=== PATIENT | female | born 1970 | race Caucasian/White ===

== ENCOUNTER → 2016-03-04 | Outpatient (CLI) | payer OTHER ==
--- NOTE | 2016-03-04 08:37 | RAD ---
EXAM DESCRIPTION: Cervical spine series. CLINICAL HISTORY: Neck pain. COMPARISON: None. TECHNIQUE: Spot views of the cervical spine were obtained. FINDINGS: Patient is status post interbody fusion of C3-4. Nearly complete bridging osteophytes seen at C2-3 and C4-5. Osteophytes noted at C5-6. Alignment is unremarkable. There is neural foraminal narrowing bilaterally at C4-5. The dens is unremarkable. IMPRESSION: Multilevel degenerative change at the levels above and below the fusion. Electronically signed by: Tyrone Luevano MD 03/04/2016 08:36
== END ==
LOC: RAD 07:51
PROVIDERS: ATTEND Anesthesiology Pain Medicine
DX: M50.122 Cervical disc disorder at C5-C6 level with radiculopathy (principal); Z98.1 Arthrodesis status

== ENCOUNTER → 2016-03-22 | Outpatient (CLI) | payer OTHER ==
--- NOTE | 2016-03-22 10:18 | MRI ---
EXAM DESCRIPTION: MR LUMBAR SPINE WITHOUT IV CONTRAST CLINICAL HISTORY: RADICULOPATHY COMPARISON: None. TECHNIQUE: Multiplanar MRI of the lumbar spine was performed without contrast. GENERAL Lumbar vertebral bodies show normal height without compression deformity. Normal alignment of the lumbar spine is seen. Conus medullaris terminates at T12 and is unremarkable. The visualized intra-abdominal and retroperitoneal structures are unremarkable. There is normal hydration of the intervertebral disc spaces without significant disc space narrowing. No significant annular tear, herniated disc, or disc bulging. No significant spinal canal stenosis, foraminal encroachment, or nerve root impingement is seen. No significant facet arthropathy or pars defect is identified. Surrounding soft tissues are unremarkable. L1-2 No significant findings. L2-3 No significant findings. L3-4 No significant findings. L4-5 No significant findings. L5-S1 No significant findings. IMPRESSION: Unremarkable noncontrast MRI of the lumbar spine. Electronically signed by: Varghese Rojas MD 03/22/2016 10:16
--- NOTE | 2016-03-22 10:35 | MRI ---
EXAM DESCRIPTION: MR CERVICAL SPINE WITHOUT THEN WITH IV CONTRAST CLINICAL HISTORY: RADICULOPATHY, CHRONIC PAIN COMPARISON: None. TECHNIQUE: Multiplanar MRI of the cervical spine was performed with and without contrast. FINDINGS: There is metallic susceptibility artifact from anterior interbody fixation hardware at C3-4. Vertebral bodies show normal height without compression deformity. Normal alignment of the cervical spine is seen. Osseous structures show no marrow replacing process. There are no abnormal areas of enhancement. No abnormal enhancing scar tissue is seen. Craniocervical junction is maintained. A normal basilar flow void is seen. The spinal cord shows normal MRI signal and contour. Right lobe thyroid is mildly enlarged compared to the left. There is an 8 mm transverse right mid lobe thyroid nodule mildly increased T2 signal without enhancement. C1-2 AND CRANIOCERVICAL JUNCTION Unremarkable. C2-3 No significant findings. C3-4 Postsurgical changes as described above. No spinal canal stenosis or foraminal encroachment. No abnormal areas of enhancement are seen. C4-5 Mild disc desiccation without loss of disc space height. No spinal canal stenosis or significant foraminal encroachment. C5-6 Mild disc desiccation without loss of disc space height. No spinal canal stenosis or foraminal encroachment is seen. C6-7 No significant findings. C7-T1 No significant findings. IMPRESSION: Postsurgical changes from anterior interbody hardware fixation at C3-4. No complicating features are identified. Mild disc degenerative changes from C4 through C6 are seen without significant spinal canal stenosis or foraminal encroachment. Incidentally noted 8 mm right lobe thyroid nodule. No further imaging followup is recommended. Recommendations for f/u of Incidental Thyroid Nodules (ITN) found on CT, MRI, NM and Extrathyroidal US based on the ACR white paper and [place] 3-tiered system for managing ITNs: 1. Further evaluation by thyroid US recommended for: ? Solitary ITN with high risk imaging features (locally invasive nodule or suspicious lymph nodes) ? Solitary ITN of any size in pediatric patients ?18 years of age ? Solitary ITN ? 1 cm in axial plane in patients between 18 and 35 years of age ? Solitary ITN ? 1.5 cm in axial plane in patients? 35 years of age ? Heterogeneous enlarged thyroid gland ? ITN avid on FDG-PET or other nuclear medicine (MIBI and octreotide) scans. FNA biopsy is also recommended for PET avidnodules. 2. No f/u is necessary for ITNs not meeting the above criteria. 3. For multiple thyroid nodules, the above recommendations for solitary ITN are to be applied to the largest nodule. 4. No US or f/u recommended for ITNs without high risk features in patients with limited life expectancy or significant co-morbidities, unless clinically warranted. 5. These recommendations do not apply to patients with increased risk for thyroid canceror to patients with symptomatic thyroid disease. Electronically signed by: Varghese Rojas MD 03/22/2016 10:34
== END | disposition home or self-care (01) ==
LOC: MRI 08:02
PROVIDERS: ATTEND Anesthesiology Pain Medicine
DX: G89.29 Other chronic pain (principal); M47.892 Other spondylosis, cervical region

== ENCOUNTER → 2016-04-28 | Outpatient (CLI) | payer OTHER ==
--- NOTE | 2016-04-28 10:43 | US ---
Study: Thyroid Gland Ultrasound. Indication: NODULE,RT LOBE Technique: Multiplanar grayscale sonographic images of the thyroid gland obtained. Comparison: None Findings: Right lobe measures 4.9 x 1.6 x 1.9 cm. Left lobe measures 4.0 x 2.0 by 1.6 cm. Isthmus measures 0.7 cm. 1.3 cm isoechoic solid nodule superior right lobe. 1.1 cm isoechoic solid nodule mid right lobe. 1.0 cm hypoechoic solid nodule lower right lobe posteriorly. 0.4 cm complex cystic nodule inferior left lobe. 1.4 cm hyperechoic solid nodule lower left lobe. Impression: Multinodular goiter as above. At this time, these nodules do not meet criteria requiring fine-needle aspiration biopsy. However, follow up sonogram in one year recommended. Electronically signed by: Gabino Robles MD 04/28/2016 10:43 AM CDT
== END | disposition home or self-care (01) ==
LOC: US 07:54
PROVIDERS: ATTEND Family Medicine
DX: E04.2 Nontoxic multinodular goiter (principal)

== ENCOUNTER 2016-06-06 12:14 | Emergency (ER) | payer OTHER ==
[2016-06-06 12:35] VITALS: TEMP 99.6
--- NOTE | 2016-06-06 13:20 | RAD ---
EXAM DESCRIPTION: Abdomen Flat Upright CLINICAL HISTORY: hematuria, ankylosing spondylitis COMPARISON: None FINDINGS: Supine and upright images of the abdomen were submitted. There are surgical clips within the right side of the abdomen. Calcification within the pelvis may represent a phlebolith. There is no free air in the abdomen. There is no evidence of bowel obstruction. IMPRESSION: No acute abnormalities. Electronically signed by: Beto Drummond MD 06/06/2016 1:19 PM CDT
[2016-06-06] MEDS ORDERED: SODIUM CHLORIDE 0.9% 1000ML 1,000 ML IVS ONE (13:29)
[2016-06-06] MEDS ORDERED: INSULIN, REG.(HUMAN) 100 U/ML VIAL SUBCU ONE (13:29)
[2016-06-06 14:08] VITALS: O2SAT 95
--- NOTE | 2016-06-06 14:32 | ED.PDOC ---
History of Present Illness - General Chief Complaint: Problem Stated Complaint: thigh cramping, hematuria, oral ulcerations Time Seen by Provider: 06/06/16 12:17 Source: patient Exam Limitations: no limitations - History of Present Illness Initial Comments: the patient is a 46-year-old female presenting to the emergency room secondary to symptoms of mild nausea with abdominal cramping along with cramping in her legs for the last week coming worse over the last 24 hours. Additionally she did have one day where she had a small amount of hematuria. No chest pain and no shortness of breath. She has been feeling more fatigued. No syncope or near syncope. Timing/Duration: 1 week Severity: mild Improving Factors: nothing Worsening Factors: nothing Associated Symptoms: malaise, nausea/vomiting, weakness Allergies/Adverse Reactions: Allergies Ciprofloxacin [From Cipro] Allergy (Verified 03/22/12 08:43) Erythromycin Allergy (Verified 03/22/12 08:43) Penicillins Allergy (Verified 03/22/12 08:43) Home Medications: Ambulatory Orders Lisinopril & Hydrochlorothiazi [Lisinopril/Hctz 20-25 mg] 1 tab PO BID 06/06/16 Review of Systems - Review of Systems Constitutional: States: malaise EENTM: States: no symptoms reported Respiratory: States: no symptoms reported Cardiology: States: no symptoms reported Gastrointestinal/Abdominal: States: see HPI Genitourinary: States: see HPI Musculoskeletal: States: muscle pain Skin: States: no symptoms reported Neurological: States: no symptoms reported Endocrine: States: increased thirst, increased urine Hematologic/Lymphatic: States: no symptoms reported All other Systems: No Change from Baseline Past Medical History (General) - Patient Medical History Hx Asthma: No Hx of COPD: No Hx Cardiac Disorders: No Hx Congestive Heart Failure: No Hx Hypertension: Yes Hx Thyroid Disease: No Hx Diabetes: Yes Hx Gastroesophageal Reflux: No Surgical History: appendectomy, other - Female History Patient is a Female of Child Bearing Age (10 -59 yrs old): Yes Hx Last Menstrual Period: 05/21/16 Patient : No Family Medical History - Family History Mother Family History: Unknown Physical Exam - Physical Exam General Appearance: Alert, Comfortable, No apparent distress Eye Exam: bilateral normal Ears, Nose, Throat: normal ENT inspection, normal pharynx, other - the patient does have changes consistent with hirsutism Neck: non-tender, full range of motion, supple, normal inspection Respiratory: chest non-tender, lungs clear, normal breath sounds, no respiratory distress, no accessory muscle use Cardiovascular/Chest: normal peripheral pulses, regular rate, rhythm, no edema Peripheral Pulses: radial,right: 2+, radial,left: 2+, dorsalis pedis,right: 2+, dorsalis pedis,left: 2+ Gastrointestinal/Abdominal: non tender, soft, other - the patient is obese. No rebound or peritoneal signs. Rectal Exam: deferred Back Exam: normal inspection, no CVA tenderness, no vertebral tenderness Extremity: normal range of motion, no pedal edema, no calf tenderness, normal capillary refill, other - the patient does have some soreness to palpation around the thighs. There is no bruising. There is no palpable mass. No palpable cords. Neurologic: alert, normal mood/affect, oriented x 3 Skin Exam: normal color Comments: Vital Signs - 24 hr 06/06/16 06/06/16 12:27 14:00 Temperature 99.6 F Pulse Rate [ 89 75 LEFT BRACHIAL] Respiratory 16 20 Rate Blood Pressure 145/85 125/75 [left brachial] O2 Sat by Pulse 96 95 Oximetry Progress - Progress Progress: 06/06/16 14:33 the patient is a 46-year-old female presenting to the emergency room secondary to one episode of hematuria a few days ago along with a progressive weeks' worth of symptoms of myalgias and abdominal cramping. Her urine dip is void of blood at this time. It is possible she may have passed a small kidney stone earlier in the week. She should have a repeat urinalysis performed in 1- 2 weeks. The patient however does have uncontrolled diabetes and is likely having systemic symptoms from the hyperglycemia and mild dehydration. She received a liter of IV fluids here today and 10 units of regular insulin. She needs to follow her blood sugars at least twice daily, before supper and before breakfast, and give herself sliding scale insulin. She needs to record these numbers and taken to her primary care doctor who can further adjust her Levemir as needed for better diabetes control. No evidence of DKA at this time. She does need follow-up with her primary care doctor later this week. ER warnings were given. - Results/Orders Results/Orders: Laboratory Tests 06/06/16 06/06/16 06/06/16 12:37 12:52 12:52 WBC 6.5 RBC 3.95 L Hgb 12.4 Hct 36.3 MCV 91.9 MCH 31.3 H MCHC 34.2 RDW 13.7 Plt Count 222 MPV 9.5 Absolute Neuts (auto) 3.30 Absolute Lymphs (auto) 2.70 Absolute Monos (auto) 0.40 Absolute Eos (auto) 0.10 Absolute Basos (auto) 0.00 Neutrophils % 50.4 Lymphocytes % 41.7 Monocytes % 6.3 Eosinophils % 0.9 L Basophils % 0.7 PT INR PTT (SP) D-Dimer, Quantitative Sodium 134 L Potassium 4.1 Chloride 100 L Carbon Dioxide 27 Anion Gap 11.1 L BUN 10 Creatinine 0.73 BUN/Creatinine Ratio 13.7 Random Glucose 362 H Serum Osmolality 281.9 Calcium 9.1 Magnesium 1.9 Total Bilirubin 0.5 AST 18 ALT 43 Alkaline Phosphatase 42 Creatine Kinase 40 CK-MB (CK-2) 0.6 CK-MB (CK-2) % Not Reportable Troponin I < 0.02 Serum Total Protein 7.5 Albumin 4.0 Globulin 3.5 Albumin/Globulin Ratio 1.1 TSH 1.58 Urine Color Yellow Urine Appearance Clear Urine pH 7.0 Ur Specific [place] 1.015 Urine Protein Negative Urine Glucose (UA) 500 H Urine Ketones Trace Urine Blood Trace-intact H Urine Nitrite Negative Urine Bilirubin Negative Urine Urobilinogen >= 8.0 H Ur Leukocyte Esterase Negative Urine RBC 0-1 Urine WBC 0 Ur Epithelial Cells 0-1 Urine Bacteria 0 Urine HCG, Qual 06/06/16 06/06/16 12:52 12:52 WBC RBC Hgb Hct MCV MCH MCHC RDW Plt Count MPV Absolute Neuts (auto) Absolute Lymphs (auto) Absolute Monos (auto) Absolute Eos (auto) Absolute Basos (auto) Neutrophils % Lymphocytes % Monocytes % Eosinophils % Basophils % PT 11.6 INR 1.030 PTT (SP) 25.4 D-Dimer, Quantitative < 230 Sodium Potassium Chloride Carbon Dioxide Anion Gap BUN Creatinine BUN/Creatinine Ratio Random Glucose Serum Osmolality Calcium Magnesium Total Bilirubin AST ALT Alkaline Phosphatase Creatine Kinase CK-MB (CK-2) CK-MB (CK-2) % Troponin I Serum Total Protein Albumin Globulin Albumin/Globulin Ratio TSH Urine Color Urine Appearance Urine pH Ur Specific [place] Urine Protein Urine Glucose (UA) Urine Ketones Urine Blood Urine Nitrite Urine Bilirubin Urine Urobilinogen Ur Leukocyte Esterase Urine RBC Urine WBC Ur Epithelial Cells Urine Bacteria Urine HCG, Qual Negative abdominal x-rays consistent with constipation. No evidence of perforation or obstruction. Departure - Departure Clinical Impression: Uncontrolled diabetes mellitus, Hematuria Disposition: Discharge to Home or Self Care Condition: Fair Departure Forms: ED Discharge - Pt. Copy, Patient Portal Self Enrollment Instructions: DI for Hyperglycemia -- Adult, DI for Hematuria Diet: diabetic diet Activity: increase activity as tolerated Referrals: [facility] OLSEN [Primary Care Provider] - 1-2 Weeks Home Medications: Ambulatory Orders Lisinopril & Hydrochlorothiazi [Lisinopril/Hctz 20-25 mg] 1 tab PO BID 06/06/16 Additional Instructions: the patient is a 46-year-old female presenting to the emergency room secondary to one episode of hematuria a few days ago along with a progressive weeks' worth of symptoms of myalgias and abdominal cramping. Her urine dip is void of blood at this time. It is possible she may have passed a small kidney stone earlier in the week. She should have a repeat urinalysis performed in 1- 2 weeks. The patient however does have uncontrolled diabetes and is likely having systemic symptoms from the hyperglycemia and mild dehydration. She received a liter of IV fluids here today and 10 units of regular insulin. She needs to follow her blood sugars at least twice daily, before supper and before breakfast, and give herself sliding scale insulin. She needs to record these numbers and taken to her primary care doctor who can further adjust her Levemir as needed for better diabetes control. No evidence of DKA at this time. She does need follow-up with her primary care doctor later this week. ER warnings were given.
[2016-06-06 15:35] VITALS: BP 135/71
== END 2016-06-06 15:05 | disposition home or self-care (01) ==
LOC: ER 12:14
DX: E11.65 Type 2 diabetes mellitus with hyperglycemia (principal); R31.9 Hematuria, unspecified; I10 Essential (primary) hypertension; E86.0 Dehydration; Z79.899 Other long term (current) drug therapy; Z88.0 Allergy status to penicillin; Z88.3 Allergy status to other anti-infective agents
CPT/HCPCS: 36415; 74010; 80053; 81001; 81025; 82550; 82553; 83735; 84443; 84484; 85025; 85379; 85610; 85730; J7030

== ENCOUNTER 2017-09-01 21:56 | Emergency (ER) | payer BC, OTHER ==
--- NOTE | 2017-09-01 22:53 | ED.PDOC ---
History of Present Illness - General Chief Complaint: Behavioral / Psych Stated Complaint: fast breathing, anxious Time Seen by Provider: 09/01/17 22:52 Source: patient Exam Limitations: no limitations - History of Present Illness Initial Comments: Jeannie Ramos 47 y/o female stated that she had nausea/vomiting 28 August 2017 and went to [facility] ER she was given ivf hydration and Zofran was mixed with her iv bag for her N/V and had feeling of throat has been closing and talked to the ER-MD andbut since she was given the stated that it is temporary feeling that it will go away but stated had persisted since then.Patient had been unable to sleep for 4 days feels SOB.Denies chest pain,palpitations. Severity: moderate Improving Factors: nothing Worsening Factors: nothing Associated Symptoms: other - see hpi Allergies/Adverse Reactions: Allergies Ciprofloxacin [From Cipro] Allergy (Verified 09/02/17 00:34) Erythromycin Allergy (Verified 09/02/17 00:34) Penicillins Allergy (Verified 09/02/17 00:34) Home Medications: Ambulatory Orders Lisinopril & Hydrochlorothiazi [Lisinopril/Hctz 20-25 mg] 1 tab PO BID 06/06/16 Adalimumab [Humira Pen] 40 units SUBCU WKLY 09/02/17 DULoxetine HCL [Cymbalta] 30 mg PO DAILY 09/02/17 Folic Acid [Folic Acid] 09/02/17 Gabapentin [Gabapentin] 09/02/17 Levemir Pen 09/02/17 Liraglutide [Victoza] 09/02/17 Lisinopril & Hydrochlorothiazi [Lisinopril/Hctz 20-12.5 mg] 1 tab PO 09/02/17 Metformin HCl [Metformin HCl] 09/02/17 Methadone HCl [Methadone HCl] 09/02/17 cloNAZepam [Klonopin] 09/02/17 Review of Systems - Review of Systems Constitutional: States: no symptoms reported EENTM: States: no symptoms reported Respiratory: States: see HPI Cardiology: States: no symptoms reported Gastrointestinal/Abdominal: States: no symptoms reported Musculoskeletal: States: back pain - chronic Skin: States: no symptoms reported Neurological: States: no symptoms reported Past Medical History (General) - Patient Medical History Hx Asthma: No Hx of COPD: No Hx Cardiac Disorders: No Hx Congestive Heart Failure: No Hx Hypertension: Yes Hx Thyroid Disease: No Hx Diabetes: Yes Hx Gastroesophageal Reflux: No Hx Other PMH: Yes - ankylosing spondylitis Surgical History: appendectomy, other - neck fusion - Social History Hx Tobacco Use: No Hx Alcohol Use: No Hx Substance Use: No Hx Substance Use Treatment: No Hx Depression: No Hx Physical Abuse: No Hx Emotional Abuse: No - Activities of Daily Living Patient Lives Alone: No - Female History Patient is a Female of Child Bearing Age (10 -59 yrs old): Yes Hx Last Menstrual Period: 08/30/17 Patient : No Family Medical History - Family History Mother Family History: Unknown Hx Family Hypertension: Yes Hx Family;Other: thyroid disorder Physical Exam - Physical Exam General Appearance: Alert, Comfortable, No apparent distress Eye Exam: bilateral normal Ears, Nose, Throat: hearing grossly normal, normal ENT inspection Neck: non-tender, full range of motion, supple, normal inspection Respiratory: chest non-tender, lungs clear, normal breath sounds, no respiratory distress Cardiovascular/Chest: normal peripheral pulses, regular rate, rhythm, no murmur Peripheral Pulses: radial,right: 2+, radial,left: 2+ Gastrointestinal/Abdominal: normal bowel sounds, non tender, soft, no organomegaly Extremity: non-tender, no pedal edema, no calf tenderness Neurologic: no motor/sensory deficits, alert, oriented x 3 Skin Exam: normal color, warm/dry Lymphatic: no adenopathy Progress - Progress Progress: 09/02/17 00:02 Vital Signs - 8 hr 09/01/17 22:49 Temperature 97.9 F Pulse Rate [ 91 H left] Respiratory 18 Rate Blood Pressure 168/101 [left] O2 Sat by Pulse 100 Oximetry 09/02/17 00:08 Patient on Humira which can cause some elevation of lactic acid - Results/Orders Results/Orders: 09/01/17 22:53 Chest,1 View [RAD] Stat 09/01/17 23:00 EKG STAT Laboratory Results - last 24 hr 09/01/17 09/01/17 09/01/17 00:30 00:30 23:05 WBC 9.6 RBC 4.43 Hgb 14.2 Hct 40.2 MCV 90.8 MCH 32.1 H MCHC 35.4 RDW 13.5 Plt Count 314 MPV 9.8 Absolute Neuts (auto) 6.00 Absolute Lymphs (auto) 3.00 Absolute Monos (auto) 0.50 Absolute Eos (auto) 0.00 Absolute Basos (auto) 0.00 Neutrophils % 62.4 Lymphocytes % 31.7 Monocytes % 5.3 Eosinophils % 0.2 L Basophils % 0.4 PT 9.9 INR 0.99 PTT (SP) 21.7 L D-Dimer, Quantitative Sodium 134 L Potassium 3.6 Chloride 98 L Carbon Dioxide 23 Anion Gap 16.6 BUN 12 Creatinine 0.70 BUN/Creatinine Ratio 17.1 Random Glucose 219 H Serum Osmolality 274.7 L Lactic Acid Calcium 9.9 Magnesium 1.8 Total Bilirubin 0.5 Direct Bilirubin < 0.1 Indirect Bilirubin 0.4 AST 26 ALT 31 Alkaline Phosphatase 35 L Creatine Kinase 110 CK-MB (CK-2) 1.6 CK-MB (CK-2) % Not Reportable Troponin I < 0.02 B-Natriuretic Peptide < 5.0 Serum Total Protein 8.5 H Albumin 4.7 Lipase TSH 1.19 Urine Color Yellow Urine Appearance Clear Urine pH 6.5 Ur Specific [place] 1.010 Urine Protein Negative Urine Glucose (UA) Negative Urine Ketones Trace Urine Blood Small H Urine Nitrite Negative Urine Bilirubin Negative Urine Urobilinogen 0.2 Ur Leukocyte Esterase Negative Urine RBC 0 Urine WBC 0-1 Ur Epithelial Cells 1-3 Urine Bacteria Rare Urine Opiates Screen Negative Urine Barbiturates Negative Ur Phencyclidine Scrn Negative U Amphetamin/Meth Scrn Negative U Benzodiazepines Scrn Negative U Cocaine Metab Screen Negative U Cannabinoids Screen Negative Ethyl Alcohol 09/01/17 09/01/17 09/01/17 23:05 23:05 23:05 WBC RBC Hgb Hct MCV MCH MCHC RDW Plt Count MPV Absolute Neuts (auto) Absolute Lymphs (auto) Absolute Monos (auto) Absolute Eos (auto) Absolute Basos (auto) Neutrophils % Lymphocytes % Monocytes % Eosinophils % Basophils % PT INR PTT (SP) D-Dimer, Quantitative 0.33 Sodium Potassium Chloride Carbon Dioxide Anion Gap BUN Creatinine BUN/Creatinine Ratio Random Glucose Serum Osmolality Lactic Acid 3.2 H* Calcium Magnesium Total Bilirubin Direct Bilirubin Indirect Bilirubin AST ALT Alkaline Phosphatase Creatine Kinase CK-MB (CK-2) CK-MB (CK-2) % Troponin I B-Natriuretic Peptide Serum Total Protein Albumin Lipase 25 TSH Urine Color Urine Appearance Urine pH Ur Specific [place] Urine Protein Urine Glucose (UA) Urine Ketones Urine Blood Urine Nitrite Urine Bilirubin Urine Urobilinogen Ur Leukocyte Esterase Urine RBC Urine WBC Ur Epithelial Cells Urine Bacteria Urine Opiates Screen Urine Barbiturates Ur Phencyclidine Scrn U Amphetamin/Meth Scrn U Benzodiazepines Scrn U Cocaine Metab Screen U Cannabinoids Screen Ethyl Alcohol 09/01/17 23:05 WBC RBC Hgb Hct MCV MCH MCHC RDW Plt Count MPV Absolute Neuts (auto) Absolute Lymphs (auto) Absolute Monos (auto) Absolute Eos (auto) Absolute Basos (auto) Neutrophils % Lymphocytes % Monocytes % Eosinophils % Basophils % PT INR PTT (SP) D-Dimer, Quantitative Sodium Potassium Chloride Carbon Dioxide Anion Gap BUN Creatinine BUN/Creatinine Ratio Random Glucose Serum Osmolality Lactic Acid Calcium Magnesium Total Bilirubin Direct Bilirubin Indirect Bilirubin AST ALT Alkaline Phosphatase Creatine Kinase CK-MB (CK-2) CK-MB (CK-2) % Troponin I B-Natriuretic Peptide Serum Total Protein Albumin Lipase TSH Urine Color Urine Appearance Urine pH Ur Specific [place] Urine Protein Urine Glucose (UA) Urine Ketones Urine Blood Urine Nitrite Urine Bilirubin Urine Urobilinogen Ur Leukocyte Esterase Urine RBC Urine WBC Ur Epithelial Cells Urine Bacteria Urine Opiates Screen Urine Barbiturates Ur Phencyclidine Scrn U Amphetamin/Meth Scrn U Benzodiazepines Scrn U Cocaine Metab Screen U Cannabinoids Screen Ethyl Alcohol Cancelled - EKG/XRAY/CT EKG: Sinus, no ST T wave changes Comments: HR-82 XRAY: chest - no acute changes Departure - Departure Clinical Impression: SOB (shortness of breath), History of ankylosing spondylitis Time of Disposition: 01:09 Disposition: Discharge to Home or Self Care Condition: Fair Departure Forms: ED Discharge - Pt. Copy, Patient Portal Self Enrollment Referrals: [facility] OLSEN [Primary Care Provider] - 1-2 Weeks Home Medications: Ambulatory Orders Lisinopril & Hydrochlorothiazi [Lisinopril/Hctz 20-25 mg] 1 tab PO BID 06/06/16 Adalimumab [Humira Pen] 40 units SUBCU WKLY 09/02/17 DULoxetine HCL [Cymbalta] 30 mg PO DAILY 09/02/17 Folic Acid [Folic Acid] 09/02/17 Gabapentin [Gabapentin] 09/02/17 Levemir Pen 09/02/17 Liraglutide [Victoza] 09/02/17 Lisinopril & Hydrochlorothiazi [Lisinopril/Hctz 20-12.5 mg] 1 tab PO 09/02/17 Metformin HCl [Metformin HCl] 09/02/17 Methadone HCl [Methadone HCl] 09/02/17 cloNAZepam [Klonopin] 09/02/17 Additional Instructions: Continue with all home meds as directed;Follow up with your primary Md 02 September 2017 as needed;Return to emergency room as needed
[2017-09-01 23:25] VITALS: TEMP 97.9; O2SAT 100
[2017-09-01] MEDS ORDERED: SODIUM CHLORIDE 0.9% 1000ML 1,000 ML IVS ONE (23:47)
[2017-09-02] MEDS ORDERED: methylPREDNISolone SODIUM SUC 125 MG/2 ML VIAL IV ONE (00:15)
[2017-09-02 01:34] VITALS: BP 153/88
--- NOTE | 2017-09-02 01:40 | RAD ---
EXAM DESCRIPTION: Chest,1 View CLINICAL HISTORY:47 years Female, sob Comparison: None FINDINGS: No focal lung consolidation. No pleural effusion. No pneumothorax. Cardiac and mediastinal silhouette is unremarkable. No acute osseous abnormality. Soft tissues are unremarkable. IMPRESSION: No acute findings. No focal lung consolidation. Electronically signed by: Juan Carlos Quintero MD 09/02/2017 1:39 AM CDT
== END 2017-09-02 01:34 | disposition home or self-care (01) ==
LOC: ER 21:56
DX: R06.02 Shortness of breath (principal); I10 Essential (primary) hypertension; E11.9 Type 2 diabetes mellitus without complications; Z98.1 Arthrodesis status; Z79.84 Long term (current) use of oral hypoglycemic drugs; Z79.4 Long term (current) use of insulin
CPT/HCPCS: 36415; 71045; 80048; 80076; 80307; 81001; 82550; 82553; 83605; 83690; 83880; 84443; 84484; 85025; 85379; 85610; 85730; 93005; J7030

== ENCOUNTER 2017-09-03 08:47 | Emergency (ER) | payer BC ==
--- NOTE | 2017-09-03 10:27 | RAD ---
Acute abdominal series on 09/03/2017 Clinical indications: Shortness of breath, lower abdominal pain COMPARISON: 06/06/2016 FINDINGS: CHEST: The lungs are clear. Cardiac, hilar and mediastinal contours are within normal limits. Pulmonary vascularity is within normal limits. ABDOMEN: There is no free air. Bowel gas pattern is nonspecific. No increased stool to suggest constipation is noted. Stable calcifications in the pelvis are consistent with phleboliths. No bony abnormality is noted. IMPRESSION: 1. No acute cardiopulmonary disease. 2. Nonspecific abdomen. Electronically signed by: Nick Chapman 09/03/2017 10:25 AM CDT
--- NOTE | 2017-09-03 10:49 | ED.PDOC ---
History of Present Illness - General Chief Complaint: Behavioral / Psych Stated Complaint: Can't sleep, anxious, thoughts of harming self Time Seen by Provider: 09/03/17 08:58 Source: patient Exam Limitations: no limitations - History of Present Illness Initial Comments: the patient is a 47-year-old female presenting to the emergency room secondary to a little more than a week's worth of symptoms. It started out about a week ago when the patient had some nausea and vomiting. She was treated at [facility]. Prior to that she believes that she took an extra dose of Humira on accident. She was given IV fluids and nausea medications there and has not had nausea and vomiting since. She was concerned that part of the nausea and vomiting may be related to her anxiety and pain medication so she went off of her clonazepam. Since that time she has gone off of her clonazepam. she has had increased anxiety along with poor sleep, tremulousness and intermittent episodes of a feeling of shortness of breath. This is primarily what is brought her in here today. She is in no respiratory distress. She is not tachypneic. Oxygen saturations are within normal limits. She is very anxious. She is not diaphoretic. Lungs are clear. She is regular rate and rhythm. No evidence of any congestive heart failure. No evidence of any leg swelling and no history of any DVT or pulmonary emboli in the past and d-dimer was negative 2 days ago.. No syncope or near-syncope. No history of any congestive heart failure. The patient was here 2 days ago for the same complaints and had a good workup at the time failing to show any other etiology as a cause for the shortness of breath. She has not had any fevers but she does take Humira as an immunosuppressant. White blood cell count was at the upper limits of normal 2 days ago. No signs of any focal infection.blood pressure was elevated upon arrival however it did significantly improv after the patient relaxed. Timing/Duration: 1 week Severity: moderate Improving Factors: nothing Worsening Factors: nothing Associated Symptoms: shortness of breath Allergies/Adverse Reactions: Allergies Ciprofloxacin [From Cipro] Allergy (Verified 09/02/17 00:34) Erythromycin Allergy (Verified 09/02/17 00:34) Penicillins Allergy (Verified 09/02/17 00:34) Home Medications: Ambulatory Orders Lisinopril & Hydrochlorothiazi [Lisinopril/Hctz 20-25 mg] 1 tab PO BID 06/06/16 Adalimumab [Humira Pen] 40 units SUBCU WKLY 09/02/17 DULoxetine HCL [Cymbalta] 30 mg PO DAILY 09/02/17 Folic Acid [Folic Acid] 09/02/17 Gabapentin [Gabapentin] 09/02/17 Levemir Pen 09/02/17 Liraglutide [Victoza] 09/02/17 Lisinopril & Hydrochlorothiazi [Lisinopril/Hctz 20-12.5 mg] 1 tab PO 09/02/17 Metformin HCl [Metformin HCl] 09/02/17 Methadone HCl [Methadone HCl] 09/02/17 cloNAZepam [Klonopin] 09/02/17 Review of Systems - Review of Systems Constitutional: States: malaise EENTM: States: no symptoms reported Respiratory: States: short of breath Cardiology: States: no symptoms reported Gastrointestinal/Abdominal: States: no symptoms reported, other - very mild lower diffuse abdominal discomfort which is apparently chronic Genitourinary: States: no symptoms reported Musculoskeletal: States: back pain - chronic Skin: States: no symptoms reported Neurological: States: anxiety, depressed Endocrine: States: no symptoms reported All other Systems: No Change from Baseline Past Medical History (General) - Patient Medical History Hx Asthma: No Hx of COPD: No Hx Cardiac Disorders: No Hx Congestive Heart Failure: No Hx Hypertension: Yes Hx Thyroid Disease: No Hx Diabetes: Yes Hx Gastroesophageal Reflux: Yes Hx Cancer: No Surgical History: appendectomy - Vaccination History Hx Tetanus, Diphtheria Vaccination: No Hx Influenza Vaccination: Yes Hx Pneumococcal Vaccination: No Immunizations Up to Date: Yes - Social History Hx Tobacco Use: No Hx Alcohol Use: No Hx Substance Use: No Hx Substance Use Treatment: No Hx Depression: Yes Hx Physical Abuse: No Hx Emotional Abuse: No - Female History Patient is a Female of Child Bearing Age (10 -59 yrs old): Yes Hx Last Menstrual Period: 08/30/17 Patient : No - Triage Comment ED Triage Comment: Very anxious, teary. Family Medical History - Family History Mother Family History: Unknown Hx Family Hypertension: Yes Hx Family;Other: thyroid disorder Physical Exam - Physical Exam General Appearance: Alert, Anxious Eye Exam: bilateral normal Ears, Nose, Throat: hearing grossly normal, normal ENT inspection, normal pharynx Neck: full range of motion, supple Respiratory: lungs clear, normal breath sounds, no respiratory distress, no accessory muscle use Cardiovascular/Chest: normal peripheral pulses, regular rate, rhythm, no edema Peripheral Pulses: radial,right: 2+, radial,left: 2+, dorsalis pedis,right: 2+, dorsalis pedis,left: 2+ Gastrointestinal/Abdominal: soft - see above.no rebound or peritoneal signs. Rectal Exam: deferred Back Exam: vertebral tenderness - which is chronic Extremity: normal range of motion, no pedal edema, no calf tenderness, normal capillary refill Neurologic: director of digital platforms II-XII nml as tested, alert, oriented x 3, depressed affect - and very anxious Skin Exam: normal color Comments: Vital Signs - 24 hr 09/03/17 09/03/17 09/03/17 09:11 09:20 10:22 Temperature 98.3 F 97.8 F Pulse Rate [ 97 H 78 73 Left Brachial] Respiratory 22 22 22 Rate Blood Pressure 181/115 157/93 167/98 [Left Arm] O2 Sat by Pulse 97 99 100 Oximetry 09/03/17 09:45 EKG STAT normal sinus rhythm. Normal axis and normal QT interval no acute ST segment changes concerning for ischemia Acute abdominal series fails to show any acute pathology. No free air. No obstruction. No cardiomegaly. No evidence of fluid overload or infiltrate. 09/03/17 10:02 BLOOD CULTURE Stat Laboratory Results - last 24 hr 09/03/17 09/03/17 09/03/17 10:02 10:02 10:02 WBC 7.4 RBC 4.32 Hgb 13.6 Hct 39.7 MCV 91.8 MCH 31.5 H MCHC 34.3 RDW 13.8 Plt Count 306 MPV 9.9 Absolute Neuts (auto) 4.30 Absolute Lymphs (auto) 2.50 Absolute Monos (auto) 0.50 Absolute Eos (auto) 0.00 Absolute Basos (auto) 0.00 Neutrophils % 58.7 Lymphocytes % 34.1 Monocytes % 6.4 Eosinophils % 0.3 L Basophils % 0.5 D-Dimer, Quantitative 0.22 Sodium 134 L Potassium 3.6 Chloride 97 L Carbon Dioxide 25 Anion Gap 15.6 BUN 9 Creatinine 0.68 BUN/Creatinine Ratio 13.2 Random Glucose 252 H Serum Osmolality 275.5 Lactic Acid Calcium 9.7 Total Bilirubin 0.9 AST 23 ALT 34 Alkaline Phosphatase 37 L Creatine Kinase 85 CK-MB (CK-2) 1.2 CK-MB (CK-2) % Not Reportable Troponin I < 0.02 B-Natriuretic Peptide < 5.0 Serum Total Protein 8.1 Albumin 4.6 Globulin 3.5 Albumin/Globulin Ratio 1.3 Amylase Lipase Serum HCG, Qual 09/03/17 09/03/17 09/03/17 10:02 10:02 10:02 WBC RBC Hgb Hct MCV MCH MCHC RDW Plt Count MPV Absolute Neuts (auto) Absolute Lymphs (auto) Absolute Monos (auto) Absolute Eos (auto) Absolute Basos (auto) Neutrophils % Lymphocytes % Monocytes % Eosinophils % Basophils % D-Dimer, Quantitative Sodium Potassium Chloride Carbon Dioxide Anion Gap BUN Creatinine BUN/Creatinine Ratio Random Glucose Serum Osmolality Lactic Acid 1.6 Calcium Total Bilirubin AST ALT Alkaline Phosphatase Creatine Kinase CK-MB (CK-2) CK-MB (CK-2) % Troponin I B-Natriuretic Peptide Serum Total Protein Albumin Globulin Albumin/Globulin Ratio Amylase 22 L Lipase 21 L Serum HCG, Qual Negative Progress - Progress Progress: 09/03/17 10:53 the patient's a 47-year-old female with a history of ankylosing spondylitis presenting secondary to symptoms of some intermittent shortness of breath, anxiety and poor sleep. Repeat workup today in comparison to the workup 2 days ago shows no acute changes. There is no evidence of any significant infection that we did do a blood culture due to the fact that she is on immunosuppressants. X-ray and laboratory work are reassuring. think her symptoms are most likely attributable to her decrease in pain and anxiety medications over the last week. For now I'm going to recommend that she take a half a dose of her clonazepam in the morning and a full dose at night. She needs to follow back up with her primary care doctor towards the middle of this coming week. ER warnings were given. She also needs to contact her motor checker and pain management doctor for any further instructions. in general and do think she is having some mild withdrawal symptoms. Departure - Departure Clinical Impression: Medication withdrawal Qualifiers: Substance type: sedative, hypnotic or anxiolytic Qualified Code(s): F13.239 - Sedative, hypnotic or anxiolytic dependence with withdrawal, unspecified Disposition: Discharge to Home or Self Care Condition: Fair Departure Forms: ED Discharge - Pt. Copy, Patient Portal Self Enrollment Instructions: Prescription Drug Withdrawal (DC) Diet: bland diet Activity: increase activity as tolerated Referrals: [facility] [Primary Care Provider] - 1-5 Days Home Medications: Ambulatory Orders Lisinopril & Hydrochlorothiazi [Lisinopril/Hctz 20-25 mg] 1 tab PO BID 06/06/16 Adalimumab [Humira Pen] 40 units SUBCU WKLY 09/02/17 DULoxetine HCL [Cymbalta] 30 mg PO DAILY 09/02/17 Folic Acid [Folic Acid] 09/02/17 Gabapentin [Gabapentin] 09/02/17 Levemir Pen 09/02/17 Liraglutide [Victoza] 09/02/17 Lisinopril & Hydrochlorothiazi [Lisinopril/Hctz 20-12.5 mg] 1 tab PO 09/02/17 Metformin HCl [Metformin HCl] 09/02/17 Methadone HCl [Methadone HCl] 09/02/17 cloNAZepam [Klonopin] 09/02/17 Additional Instructions: the patient's a 47-year-old female with a history of ankylosing spondylitis presenting secondary to symptoms of some intermittent shortness of breath, anxiety and poor sleep. Repeat workup today in comparison to the workup 2 days ago shows no acute changes. There is no evidence of any significant infection that we did do a blood culture due to the fact that she is on immunosuppressants. X-ray and laboratory work are reassuring. think her symptoms are most likely attributable to her decrease in pain and anxiety medications over the last week. For now I'm going to recommend that she take a half a dose of her clonazepam in the morning and a full dose at night. She needs to follow back up with her primary care doctor towards the middle of this coming week. ER warnings were given. She also needs to contact her motor checker and pain management doctor for any further instructions. in general and do think she is having some mild withdrawal symptoms.
[2017-09-03 11:07] VITALS: BP 144/90; TEMP 98.4; O2SAT 99
== END 2017-09-03 11:05 | disposition home or self-care (01) ==
LOC: ER 08:47
DX: F13.239 Sedative, hypnotic or anxiolytic dependence with withdrawal, unspecified (principal); I10 Essential (primary) hypertension; E11.9 Type 2 diabetes mellitus without complications; K21.9 Gastro-esophageal reflux disease without esophagitis; Z79.899 Other long term (current) drug therapy; Z79.4 Long term (current) use of insulin; Z79.84 Long term (current) use of oral hypoglycemic drugs

== ENCOUNTER → 2020-02-19 | Outpatient (CLI) | payer MEDICARE | LOC: LAB.O 14:44 | PROVIDERS: ATTEND Internal Medicine | DX: M45.9 Ankylosing spondylitis of unspecified sites in spine (principal) ==

== ENCOUNTER → 2020-02-20 | Outpatient (CLI) | payer MEDICARE ==
--- NOTE | 2020-02-21 07:57 | RAD ---
Study: 3 Views of the Left Shoulder. Indication: SHOULDER PAIN Comparison: None Impression: A.C. and glenohumeral joint alignment normal without acute fracture or dislocation. Severe AC joint osteoarthritis. Mild to moderate glenohumeral joint osteoarthritis. 10 mm focus of calcium deposition in the rotator cuff tendon insertions. MRI could better evaluate. Electronically signed by: Gabino Robles MD 02/21/2020 7:56 AM [facility]
== END ==
LOC: RAD 11:45
PROVIDERS: ATTEND Family Medicine
DX: M89.8X1 Other specified disorders of bone, shoulder (principal); M19.012 Primary osteoarthritis, left shoulder